=== PATIENT | male | born 1985 | race Caucasian/White ===

== ENCOUNTER 2017-11-01 22:51 | Emergency (ER) | payer OTHER ==
[2017-11-01 22:57] VITALS: BP 147/100; PULSE 78; RESP 16; TEMP 98.1; O2SAT 98
--- NOTE | 2017-11-01 23:38 | EDPHY ---
H & P Stated Complaint: R UPPER BACK TOOTH PAIN X 2.5 DAYS - Personal History Current Tetanus Diphtheria and Acellular Pertussis (TDAP): No - Medical/Surgical History Hx Asthma: No Hx Chronic Respiratory Disease: No Hx Diabetes: No Hx Cardiac Disease: No Hx Renal Disease: No Hx Cirrhosis: No Hx Alcoholism: No Hx HIV/AIDS: No Hx Splenectomy or Spleen Trauma: No Other PMH: DENIES - Social History Smoking Status: Former smoker HPI/ROS: Chief complaint: Toothache History of present illness: 32-year-old male presents to the emergency department for evaluation of a toothache. He reports the onset of pain over the last 2-3 days. Pain is in the right, upper aspect of his mouth. He has a known problem with a tooth in this region. Pain is progressively worsening. He denies other associated signs or symptoms including no fevers, no swelling of the face, neck or throat, no difficulty talking, swallowing or breathing. He does have a dentist. (Lupillo Martinez) - Physical Exam Exam: General: Alert, nontoxic Skin: No erythema or edema of the face or neck ENT: No edema of the oropharynx. No hoarseness, no drooling, no trismus, no stridor. Mouth: Patient has decent dental hygiene. However the right upper 1st molar is essentially broken off at the gumline. There is some erythema edema in this region. Neurological: Alert and oriented x4. (Lupillo Martinez) Constitutional: Initial Vital Signs Temperature (C) 36.7 C 11/01/17 22:54 Heart Rate 78 11/01/17 22:54 Respiratory Rate 16 11/01/17 22:54 Blood Pressure 147/100 H 11/01/17 22:54 O2 Sat (%) 98 11/01/17 22:54 O2 Delivery Mode Room Air Allergies/Adverse Reactions: No Known Allergies Allergy (Unverified 11/01/17 22:54) Home Medications: Medication Instructions Recorded Amoxicillin Trihydrate [Amoxil] 500 mg PO TID 7 Days cap 11/01/17 Medical Decision Making ED Course/Re-evaluation: Patient seen under the supervision of my secondary supervising physician Dr. Leonora Drew. Patient presents to the emergency department for a toothache. I am concerned he is developing an infection. He will be started on antibiotics. Pain management is discussed. He has a dentist and is asked to follow up with him next week for recheck. Referral information is further provided. Return precautions are given. (Lupillo Martinez) PHYSICIAN DOCUMENTATION: The patient was evaluated and managed by the [facility] [employer] General Supervisor. My co- signature indicates that I have reviewed this chart and I agree with the findings and plan of care as documented. I am the secondary supervising physician. (Leonora Drew) Differential Diagnosis: Included but not limited to dental rivera, dental trauma, periodontal abscess ( Lupillo Martinez) - Data Points Medications Given: Discontinued Medications Hydrocodone Bitart/Acetaminophen ([place] 5/325mg Prepack#6) 1 btl TAKEHOME EDNOW ONE Stop: 11/01/17 23:42 Last Admin: 11/01/17 23:56 Dose: 1 btl Amoxicillin (Amoxicillin) 500 mg PO EDNOW ONE PRN Reason: Protocol Stop: 11/01/17 23:42 Last Admin: 11/01/17 23:56 Dose: 500 mg Departure - Departure Disposition: Home, Routine, Self-Care Clinical Impression: Periodontal abscess Condition: Good Instructions: Hydrocodone/Acetaminophen (By mouth), Amoxicillin (By mouth), Abscess (ED) Additional Instructions: Follow-up with a dentist for continued care In regards to pain control see the following: Use ibuprofen [600] mg [3] times a day for the next 2-3 days for pain In addition You have been prescribed [[place]] for pain. [[place]] contains Tylenol, do not take extra Tylenol/acetaminophen/Apap with it. It is sedating. Take antibiotics as prescribed until finished even feeling better If symptoms worsen or new symptoms develop return to the emergency room for recheck Referrals: NONE *PRIMARY CARE P,. [Primary Care Provider] - As per Instructions [facility] [Outside] - As per Instructions [facility] [Outside] - As per Instructions Dental [facility] [Outside] - As per Instructions Dental [facility] [Outside] - As per Instructions Dental [facility] [Outside] - As per Instructions Prescriptions: Amoxicillin Trihydrate [Amoxil] 500 mg PO TID 7 Days cap
[2017-11-01] MEDS ORDERED: HYDROCOD/APAP 5/325 PREPACK#6 BTL TAKEHOME ONE (23:41)
== END 2017-11-01 23:55 | disposition home or self-care (01) ==
DX: K05.219 Aggressive periodontitis, localized, unspecified severity (principal); Z87.891 Personal history of nicotine dependence